=== PATIENT | female | born 1965 ===

== ENCOUNTER 2021-01-28 08:00 | Outpatient (CLI) | payer OTHER | END 2021-01-28 09:00 | disposition home or self-care (01) | LOC: LAB 08:00 → ADM 14:00 → AMB-ENDOS 02-01 14:00 → EDSTATUS 02-01 14:00 | PROVIDERS: ATTEND Colon & Rectal Surgery | DX: Z03.818 Encounter for observation for suspected exposure to other biological agents ruled out (principal); K57.32 Diverticulitis of large intestine without perforation or abscess without bleeding; K92.1 Melena; Z12.11 Encounter for screening for malignant neoplasm of colon; K29.00 Acute gastritis without bleeding; K21.9 Gastro-esophageal reflux disease without esophagitis ==

== ENCOUNTER 2021-03-15 09:08 | Day surgery (SDC) | payer OTHER | END 2021-03-15 14:40 | disposition home or self-care (01) | LOC: AMB-ENDOS 09:08 | PROVIDERS: ATTEND Colon & Rectal Surgery | DX: K57.32 Diverticulitis of large intestine without perforation or abscess without bleeding (principal); K64.1 Second degree hemorrhoids; Z20.822 Contact with and (suspected) exposure to COVID-19; Z12.11 Encounter for screening for malignant neoplasm of colon ==